=== PATIENT | male | born 1935 | race Caucasian/White ===

== ENCOUNTER 2021-08-12 14:42 | Outpatient (CLI) | payer MEDICARE, OTHER, SELFPAY ==
[2021-08-13 10:12] LABS: INR 5.99 (0.8-1.2)
== END 2021-08-12 14:43 | disposition home or self-care (01) ==
PROVIDERS: Family Provider Physician Assistant; Visit Provider Family Medicine
DX: Z79.01 Long term (current) use of anticoagulants (principal)
CPT/HCPCS: 85610

== ENCOUNTER 2021-08-23 10:56 | Outpatient (CLI) | payer MEDICARE, OTHER, SELFPAY ==
[2021-08-23 11:54] LABS: Alanine Aminotransferase 40 U/L (0-41); Albumin Level 2.9 g/dL (3.5-5.2); Alkaline Phosphatase 84 IU/L (40-130); Aspartate Amino Transferase 62 U/L (0-40); Blood Urea Nitrogen 39 mg/dL (8-23); Calcium 7.8 mg/dL (8.5-10.5); Carbon Dioxide 23 mmol/L (22-29); Chloride 98 mmol/L (98-107); Globulin 3.6 g/dL (1.3-4.6); Glucose 96 mg/dL (65-115); Osmolality Calculated 285 mOsm/kg (285-295); Sodium 133 mmol/L (136-145); Total Bilirubin 0.6 mg/dL (0.15-1.2); Total Protein 6.5 g/dL (6.6-8.7)
[2021-08-23 12:17] LABS: Anion Gap 16.8 (5-19); Potassium 4.8 mmol/L (3.5-5.1)
[2021-08-23 15:23] LABS: Digoxin 2.5 ng/mL (0.6-1.2)
== END 2021-08-23 10:57 | disposition home or self-care (01) ==
PROVIDERS: Visit Provider Family Medicine
DX: E87.8 Other disorders of electrolyte and fluid balance, not elsewhere classified (principal)
CPT/HCPCS: 80053; 80162